=== PATIENT | male | born 1995 | race Caucasian/White ===

== ENCOUNTER → 2020-06-06 14:11 | Outpatient (CLI) | payer OTHER, SELFPAY ==
--- NOTE | ~2020-06-06 | CT_ITS ---
EXAMINATION: CT abdomen pelvis wo con DATE: 06/06/2020 14:28 INDICATION: Abdominal pain. TECHNIQUE: Computed tomography (CT) of the abdomen and pelvis was performed without intravenous contr ast. The dose-length product (DLP) was 582.69 mGy-cm. Automated exposure control and iterative recons truction technique were employed. COMPARISON: None FINDINGS: The lung bases are clear. The heart size is normal. The liver, spleen, pancreas, and adrena l glands are normal. The gallbladder is decompressed. The kidneys are unremarkable. No pathologically enlarged abdominal or pelvic lymph nodes are identified. There is no free intraperitoneal gas or wilbert dence of bowel obstruction. The appendix is normal. Phleboliths are noted in the pelvis. There is mil d lumbar spondylosis at L5-S1. IMPRESSION: 1. No CT correlate for the patient's symptoms. Reviewed, dictated and finalized at location B.
== END ==
PROVIDERS: Visit Provider Physician Assistant
DX: R10.9 Unspecified abdominal pain (principal)
CPT/HCPCS: 74176

== ENCOUNTER 2023-12-01 18:27 | Emergency (ER) | payer OTHER, SELFPAY ==
--- NOTE | ~2023-12-01 | XR_ITS ---
EXAMINATION: XR chest 2V DATE: 12/01/2023 19:14 INDICATION: Chest pain. Dyspnea. TECHNIQUE: Frontal and lateral views of the chest were obtained. COMPARISON: CT abdomen and pelvis 06/06/2020 FINDINGS: There is no pneumonia, pleural effusion, or pneumothorax. The heart size is normal. IMPRESSION: 1. No acute cardiopulmonary disease. Reviewed, dictated and finalized at location E. ITURE REFINISHER
--- NOTE | 2023-12-01 18:29 | ECG_ITS ---
Measurements Intervals Elbert Rate: 95 P: 67 TN: 158 QRS: 31 QRSD: 107 T: 67 QT: 334 QTc: 421 Interpretive Statements SINUS RHYTHM WITH SINUS ARRHYTHMIA INCOMPLETE RIGHT BUNDLE BRANCH BLOCK BORDERLINE ECG NO PREVIOUS ECG AVAILABLE FOR COMPARISON Electronically Signed On 12-02-2023 11:11:40 WAGON DRILLER by Chilango Unger D.O.
[2023-12-01 18:53] VITALS: BP 140/81; PULSE 84; RESP 16; TEMP 36.8; O2SAT 99
[2023-12-01 19:03] LABS: Basophils Percent Auto 0.5 % (0.2-1.2); Eosinophils Absolute Auto 0.2 K/mm3 (0-0.3); Eosinophils Percent Auto 2.8 % (0-4.4); Hematocrit 48.8 % (42.0-52.0); Hemoglobin 16.4 g/dL (14.0-18.0); Immature Granulocyte Absolute 0.01 K/mm3 (0.00-0.031); Immature Granulocyte Percent A 0.2 % (0-0.5); Lymphocytes Percent Auto 36.7 % (18.3-44.2); Mean Corpuscular HGB Conc 33.6 g/dl (32-36); Mean Corpuscular Hemoglobin 31.8 pg (26-34); Mean Corpuscular Volume 94.6 fl (80-100); Mean Platelet Volume 9.4 fl (7.4-10.4); Monocytes Absolute Auto 0.5 K/mm3 (0.1-0.6); Monocytes Percent Auto 8.8 % (2.6-8.5); Neutrophils Absolute Auto 3.1 K/mm3 (1.3-6.7); Platelet Count Result 212 k/mm3 (150-375); Red Blood Count 5.16 M/mm3 (4.6-6.20); Red Cell Distribution Width 12.2 % (11.5-14.5)
[2023-12-01 19:13] LABS: Prothrombin Time 13.3 Seconds (11.1-14.7)
[2023-12-01 19:14] LABS: Alanine Aminotransferase 31 U/L (6-50); Albumin Level 4.8 g/dL (3.5-5.1); Alkaline Phosphatase 50 U/L (38-126); Anion Gap 8 mmol/L (8-16); Aspartate Amino Transferase 31 U/L (17-59); Bilirubin,Total 0.5 mg/dL (0.2-1.3); Blood Urea Nitrogen 29 mg/dL (9-20); Calcium 9.8 mg/dL (8.4-10.2); Carbon Dioxide 28 mmol/L (22-30); Chloride 103 mmol/L (98-107); Estimated CRCL calculation 114 ml/min; Estimated Glomerular Filt Rate > 60; Glucose 102 mg/dL (65-110); Lipase 87 U/L (23-300); Potassium 4.2 mmol/L (3.4-5.0); Sodium 139 mmol/L (137-145)
[2023-12-01 19:26] LABS: Troponin I < 0.012 ng/mL (0.000-0.034)
== END 2023-12-01 19:40 | disposition left against medical advice (07) ==
PROVIDERS: Emergency Provider Physician Assistant; PCP Physician Assistant
DX: I48.91 Unspecified atrial fibrillation (principal)
CPT/HCPCS: 36415; 71046; 80053; 83690; 84484; 85025; 85610; 85730; 93005; 99199

== ENCOUNTER 2024-08-03 18:03 | Emergency (ER) | payer OTHER, SELFPAY ==
[2024-08-03 18:06] VITALS: BP 150/82; PULSE 79; RESP 17; TEMP 37.1; O2SAT 100
--- NOTE | 2024-08-03 18:44 | ED.ABDPAIN ---
HPI - Abdominal Pain General Chief Complaint: Abdominal Pain Stated Complaint: ?stomach fungal infection Time Seen by Provider: 08/03/24 18:44 Source: patient Mode of arrival: ambulatory Limitations: no limitations History of Present Illness HPI narrative: Patient is a 29 y/o male who presents to the ED with report of abdominal pain and bloating. Patient reports a several year history of stomach issues. He has had multiple endoscopies and colonoscopies in the past and has not been diagnosed with anything specific. He states he has previously been diagnosed with a stomach fungal infection. He thinks it was H.pylori and was treated with 2 antibiotics. Patient reports over the past 8 days, he has been having increased abdominal bloating, increased flatulence, diffuse flushed sensation, intermittent nausea, and feelings of constipation. He last had a bowel movement this morning, but states it was small and did not provide relief. Denies fevers, vomiting, diarrhea, rectal bleeding, melena. Patient would like to be testing for stomach fungal infections and mold. Related Data Allergies Allergy/AdvReac Type Severity Reaction Status Date / Time Sulfa (Sulfonamide Allergy Mild Verified 03/09/16 19:57 Antibiotics) Review of Systems Review of Systems: All systems reviewed & are unremarkable except as noted in HPI. All systems reviewed & are unremarkable except as noted in HPI and below Exam Narrative: GENERAL: Well appearing, well-nourished, non-toxic, in no acute distress. HEAD: Normocephalic, atraumatic. RESPIRATORY: Airway patent, respirations nonlabored. CARDIOVASCULAR: Regular rate and rhythm ABDOMINAL: Soft, nontender, nondistended. Normoactive BS. MUSCULOSKELETAL: Moves all extremities. No gross deformities. SKIN: Warm, dry, normal color. NEURO: A&O X3. Speech clear. PSYCHIATRIC: Appropriate mood and affect. Normal interaction. Course Vital Signs Vital signs: Vital Signs Temperature 98.7 F 08/03/24 18:06 Pulse Rate 79 08/03/24 18:06 Respiratory Rate 17 08/03/24 18:06 Blood Pressure 150/82 H 08/03/24 18:06 Pulse Oximetry 100 08/03/24 18:06 Oxygen Delivery Room Air 08/03/24 18:06 Temperature 98.7 F 08/03/24 18:06 Pulse Rate 79 08/03/24 18:06 Respiratory Rate 17 11/07/24 18:06 Blood Pressure 150/82 H 08/03/24 18:06 Pulse Oximetry 100 08/03/24 18:06 Oxygen Delivery Room Air 08/03/24 18:06 MDM - Abdominal Pain MDM Narrative Medical decision making narrative: patient evaluated by myself in triage. He is concerned for stomach fungal infection or mold exposure. States he has long history of stomach issues and over the last 8 days has been having increased bloating, gas, discomfort. I discussed with patient that we do not have specific test for stomach fungal infections or mold exposure through the ER. Discussed that there are H pylori breath and stool testing, however these are not typically performed in the ER and are not same day labs. Discussed that we could perform basic laboratory studies and CT imaging of the abdomen however patient declined this. He states he will just follow-up with his primary care doctor and GI specialist next week. He does not have any signs of surgical abdomen on exam. Vital signs are stable. No evidence of hemodynamic instability. Feel he is safe for outpatient follow-up. Given return precautions. He agrees with plan. Discharged in stable condition. Medical Records Attestation: I reviewed the patient's medical records. Discharge Plan Discharge Clinical Impression: Abdominal bloating, Flushing Patient Disposition: Home, Self-Care Condition: Stable Instructions: Antibiotic Form, Abdominal Pain (ED) Additional Instructions: Follow up with GI for further evaluation. Follow-up/Referrals: Kevin,ANTONINA Rocha Jr. [Primary Care Provider] - Time of Disposition: 18:52
== END 2024-08-03 18:58 | disposition home or self-care (01) ==
PROVIDERS: Emergency Provider Physician Assistant; PCP Physician Assistant
DX: R14.0 Abdominal distension (gaseous) (principal); R23.2 Flushing
CPT/HCPCS: 99281

== ENCOUNTER 2024-11-16 14:10 | Outpatient (CLI) | payer OTHER, SELFPAY ==
--- NOTE | ~2024-11-16 | MR_ITS ---
EXAMINATION: MR cervical spine wo con DATE: 11/16/2024 14:41 INDICATION: Dorsalgia. TECHNIQUE: Magnetic resonance imaging (MRI) of the cervical spine was performed without intravenous c ontrast. COMPARISON: None FINDINGS: Alignment is normal. Vertebral body heights are normal. There is mildly decreased disc heig ht at C5-C6. The spinal cord signal intensity is normal. The following disc levels are specifically d iscussed: C2-C3: The disc does not extend beyond the endplate margin. There is no uncovertebral joint osteoarth ritis. There is mild bilateral facet joint osteoarthritis. There is no neural foraminal stenosis. The re is no central canal stenosis. C3-C4: The disc does not extend beyond the endplate margin. There is no uncovertebral joint osteoarth ritis. There is no facet joint osteoarthritis. There is no neural foraminal stenosis. There is no jeffy tral canal stenosis. C4-C5: There is a central protrusion with annular fissure. There is no uncovertebral joint osteoarthr itis. There is mild right facet joint osteoarthritis. There is no neural foraminal stenosis. There is mild central canal stenosis. C5-C6: There is a central protrusion with annular fissure. There is mild left uncovertebral joint ost eoarthritis. There is mild bilateral facet joint osteoarthritis. There is mild left neural foraminal stenosis. There is mild central canal stenosis. C6-C7: There is a right central protrusion. There is mild bilateral uncovertebral joint osteoarthriti s. There is moderate bilateral facet joint osteoarthritis. There is mild bilateral neural foraminal s tenosis. There is mild central canal stenosis. C7-T1: The disc does not extend beyond the endplate margin. There is no uncovertebral joint osteoarth ritis. There is moderate right and mild left facet joint osteoarthritis. There is no neural foraminal stenosis. There is no central canal stenosis. IMPRESSION: 1. Mild cervical spondylosis. Reviewed, dictated and finalized at location A. REDUCTION EQUIPMENT OPERATOR
== END 2024-11-16 14:11 | disposition home or self-care (01) ==
LOC: GOSHIMG 14:10
PROVIDERS: PCP Nurse Practitioner Adult Health; Visit Provider Nurse Practitioner Adult Health
DX: M47.812 Spondylosis without myelopathy or radiculopathy, cervical region (principal); M54.81 Occipital neuralgia
CPT/HCPCS: 72141

== ENCOUNTER 2025-03-09 14:43 | Outpatient (CLI) | payer OTHER, SELFPAY ==
--- NOTE | ~2025-03-09 | MR_ITS ---
MRI of the brain Clinical History: Asymmetric hearing loss Technique: Axial and sagittal T1-weighted images were acquired. These were followed by axial T2-weigh naomy, diffusion weighted, gradient, and FLAIR images. Thin cut coronal and axial T1-weighted and T2-we ighted images were acquired through the internal auditory canals. Following intravenous administratio n of 18 cc MultiHance gadolinium, T1-weighted fat-sat imaging was performed through the brain in the axial and coronal planes. Thin cut T1-weighted postcontrast imaging was performed through the interna l auditory canals in the axial and coronal planes. Findings: No abnormal signal seen in the brain parenchyma. No acute infarct or intracranial hemorrhag e. Ventricles and subarachnoid spaces are unremarkable. Orbits are unremarkable. Paranasal sinuses and m astoid air cells are clear. Major intracranial flow voids are intact. Sagittal midline structures are intact. There is a 2.2 x 1.6 cm enhancing mass at the right CP angle region extending into the internal audit ory canal, most compatible with large acoustic schwannoma (series 14 image 65). No other mass lesion identified. No other abnormal postcontrast enhancement identified. IMPRESSION: 2.2 x 1.6 cm enhancing mass the right CP angle region extending into the right internal auditory perez l, most compatible with large acoustic schwannoma, versus meningioma. Reviewed, dictated and finalized at location M. IMPRESSION: 2.2 x 1.6 cm enhancing mass the right CP angle region extending into the right internal auditory canal, most compatible with large acoustic schwannoma, versus meningioma.
== END 2025-03-09 14:44 | disposition home or self-care (01) ==
PROVIDERS: PCP Physician Assistant; Visit Provider Nurse Practitioner Family
DX: H93.8X2 Other specified disorders of left ear (principal)
CPT/HCPCS: 70553; A9577